=== PATIENT | male | born 1960 | race Caucasian/White ===

== ENCOUNTER 2017-06-11 16:38 | Inpatient (IN) ==
[2017-06-11] MEDS ORDERED: SALINE FLUSH 10ml SYRINGE IVF PRN (16:48)
[2017-06-11] MEDS ORDERED: NITROGLYCERIN 0.4 MG SUBLINGUAL TABLET SL PRN (16:48)
[2017-06-11] MEDS ORDERED: NS 1,000 ML IV ONE ×2 (16:48→18:50)
[2017-06-11] MEDS ORDERED: ASPIRIN 81 MG CHEWABLE TABLET PO ONE (16:48)
--- OUTSIDE RECORDS SUMMARY | 2017-06-11 16:53 | External Medical Summary | Continuity of Care Document ---
:1960 Author Organization [facility] Care Team Providers Name Role Phone [employer] Unavailable Unavailable
--- NOTE | 2017-06-11 17:05 | Emergency Department Report ---
Chest Pain HPI - General Chief Complaint: Chest Pain <Evelyn Hou Ellen 06/11/17 17:05> Stated Complaint: CHEST PAIN LEFT SIDEDED PAIN <SaviEvelynlakshmi Hughes 06/11/17 17:05> Time Seen by Provider: 06/11/17 16:47 <Evelyn Hou 06/11/17 17:05> Source: patient, family <SaviEvelynlakshmi Hughes 06/11/17 17:05> Mode of arrival: wheelchair <Evelyn Hou 06/11/17 17:05> Limitations: no limitations <SaviEvelynlakshmi Hughes 06/11/17 17:05> - History of Present Illness HPI narrative: PT presents with a complaint of left shoulder pain that radiates down his left arm. PT states he woke with the discomfort. He denies nausea, vomiting, diarrhea , diaphoresis, or SOA. Pain is not positional and does not relieve with rest. <Evelyn Hou 06/11/17 17:05> MD complaint: chest pain <SaviEvelynlakshmi Hughes 06/11/17 17:05> Occurred At: home <SaviEvelynlakshmi Hughes 06/11/17 17:05> Onset (ago): hour(s) <Evelyn Hou 06/11/17 17:05> Duration: constant <SaviEvelynlakshmi Hughes 06/11/17 17:05> Onset: during rest <Evelyn Hou 06/11/17 17:05> Relieving factors: nothing <Evelyn Hou 06/11/17 17:05> Exacerbating factors: nothing <Evelyn Hou 06/11/17 17:05> - Related Data Home Medications Medication Instructions Recorded Confirmed Aspirin [Aspirin EC] 81 mg PO DAILY 06/11/17 06/11/17 Cetirizine HCl [Zyrtec] 10 mg PO DAILY 06/11/17 06/11/17 Fluticasone Nasal [place] [Flonase] 1 spray KIKO DAILY 06/11/17 06/11/17 <Evelyn Hou 06/11/17 17:42> Allergies Allergy/AdvReac Type Severity Reaction Status Date / Time No Known Allergies Allergy Verified 06/11/17 17:05 <Evelyn Hou 06/11/17 17:42> Review of Systems All systems: reviewed and negative except as stated <SaviEvelyn Gamboa Ellen 17:05> Constitutional: Reports: as per HPI <HienechoEvelyn Gamboa Ellen 06/11/17 17:05> Cardiovascular: Reports: as per HPI <SaviEvelyn Bee Hughes 06/11/17 17:05> Respiratory: Reports: as per HPI <HienechoEvelyn Gamboa Ellen 06/11/17 17:05> Gastrointestinal: Reports: as per HPI <TabbymanavEvelyn Gamboa Ellen 06/11/17 17:05> Musculoskeletal: Reports: as per HPI <SaviEvelynlakshmi Hughes 06/11/17 17:05> Neurological: Reports: as per HPI <HienechoEvelyn Hughes 06/11/17 17:05> [facility] Patient Stated Medical History Other Cardiology Yes: PAT <June,Mirza M 06/11/17 17:31> Patient Stated Medical History Other Cardiology Yes: PAT <Evelyn Hou 06/11/17 17:42> Physical Exam - Limitations Limitations: no limitations <HienechoEvelyn Hughes 06/11/17 17:05> - General General appearance: alert, in no apparent distress <HienechoEvelyn Hughes 06/11 17:05> - Normal Exams: Head:: Normocephalic without trauma <SaviEvelynlakshmi Hughes 06/11/17 17:05> Eyes:: Pupils are PERRLA w/ EOMI <HienechoEvelyn Gamboa Ellen 06/11/17 17:05> Chest/Respirations:: Clear all bergeron, with good airflow, and symmetry bilaterally <HienechoEvelynlakshmi Hughes 06/11/17 17:05> Cardiovascular:: Regular rate and rhythm, Pulses 2+ all extremities, capillary refill, <2 seconds all extremities <HienechoEvelyn Bee Ellen 06/11/17 17:05> Abdomen:: Bowel sounds positive, soft, non-tender, non-distended <Savi Evelynlakshmi Hughes 06/11/17 17:05> Musculoskeletal:: No tenderness, or deformity noted, good range of motion, all extremities <Evelyn Hou 06/11/17 17:05> Integumentary:: No rashes <Evelyn Hou 06/11/17 17:05> Neurological:: Patient is alert, and oriented, cranial nerves, motor/sensory/ cerebellar, exams w/o gross deficits, to observation <Evelyn Hou 17:05> Psychiatric:: Patient exhibits, appropriate attention, emotion and affect < Evelyn Hou 06/11/17 17:05> Course Vital Signs Temperature 97.8 F 06/11/17 16:41 Pulse Rate 59 L 06/11/17 16:41 Respiratory Rate 16 06/11/17 16:41 Blood Pressure 122/63 06/11/17 16:41 Pulse Oximetry 99 06/11/17 16:41 Temperature 98.6 F 06/12/17 12:24 Pulse Rate 70 06/12/17 16:15 Respiratory Rate 23 06/12/17 16:00 Blood Pressure 102/67 06/12/17 16:15 Pulse Oximetry 98 06/12/17 16:15 <Evelyn Hou 06/15/17 11:55> Chest Pain - MDM Narrative Medical decision making narrative: EKG, X ray and labs reviewed. Results consistent with probable cardiac infarct. Dr Emmanuel notified of findings. PT given NTG paste, Morphine, and started on a Heparin gtt. Discussed admit and plan with pt and family who voice understanding. PT BP lowered with NTG past. NTG removed and fluids provided. Dr Emmanuel updated on status. PT is pain free at time of admission <Evelyn Hou 06/11/17 18:16> - Differential Diagnosis Likely: pneumothorax, stable angina, unstable angina pectoris, atypical chest pain, costochondritis, chest pain <Evelyn Hou 06/11/17 17:05> - Lab Data Attestation: I reviewed the patient's lab results. <Evelyn Hou 06/11 17:42> Result diagrams: 06/12/17 02:04 06/12/17 02:04 <Evelyn Hou 06/11/17 17:05> Lab Results 06/11/17 06/11/17 Range/Units 17:06 17:06 WBC 10.2 (4.5-11.0) T/MM3 RBC 5.02 (4.50-5.90) M/MM3 Hgb 15.1 (13.5-17.5) GM/DL Hct 44.0 (41-53) % MCV 87.6 (80-100) UM3 MCH 30.1 (26-34) UUG MCHC 34.3 (31-37) GM/DL RDW Std Deviation 40.0 (36.9-50.2) FL Plt Count 263 (130-400) T/MM3 MPV 9.7 (9.4-12.4) UM3 Immature Gran % (Auto) Not performed Neut % (Auto) Not performed Lymph % (Auto) Not performed [place] % (Auto) Not performed Eos % (Auto) Not performed Baso % (Auto) Not performed Neut # (Auto) Not performed Lymph # (Auto) Not performed [place] # (Auto) Not performed Eos # (Auto) Not performed Baso # (Auto) Not performed Abs Immat Gran (auto) Not performed Neutrophils % (Manual) 81.0 H (33-66) % Lymphocytes % (Manual) 14.0 L (23-45) % Monocytes % (Manual) 4.0 (0-9.0) % Eosinophils % (Manual) 1.0 (0-4) % Neutrophils # (Manual) 8.3 H (1.8-7.7) T/MM3 Lymphocytes # (Manual) 1.4 (1-4.8) T/MM3 Monocytes # (Manual) 0.4 (0-0.8) T/MM3 Eosinophils # (Manual) 0.1 (0-0.5) T/MM3 RBC Morph Comment Normal Turbidity < 20 (0-20) Sodium 145 H (134-144) MEQ/L Potassium 3.6 (3.6-5) MEQ/L Chloride 107 (98-107) MEQ/L Carbon Dioxide 28 (22-30) MEQ/L Anion Gap 10 (5-15) meq/L BUN 11.0 (9-20) MG/DL Creatinine 0.9 (0.8-1.5) mg/dL GFR Calculation 86 BUN/Creatinine Ratio 12 (6-26) RATIO Glucose 157 H (75-110) MG/DL Calculated Osmolality 281 H (261-280) MOSM/KG Calcium 9.2 (8.4-10.2) MG/DL Icterus Index < 2 (0-7) Troponin I 1.550 H (0-0.12) ng/ml NT-Pro-B Natriuret Pep 379 H (0-175) pg/mL Specimen Hemolysis < 15 (0-25) <Evelyn Hou 06/15/17 11:55> - Radiology Data Attestation: I reviewed the patient's radiology results. (read per Dr Bashir, Bilateral lower lobe infiltrates) <Evelyn Hou 06/11/17 17:42> - EKG Data EKG #1 EKG attestation: Yes: I reviewed and interpreted this EKG. <Evelyn Hou 06/11/17 17:42> Yes: I reviewed and interpreted this EKG. <June,Mirza 06/11 17:31> EKG shows normal: sinus rhythm, axis, ST-T waves <June,Mirza 06/11/17 17:31 > Rate: normal <June,Mirza 06/11/17 17:31> [place]/QRS: RBBB <eb 06/11/17 17:31> Disposition Clinical Impression: Chest pain in adult <Evelyn Hou 06/15/17 11:55> Disposition: 02 To [facility] <Evelyn Hou 06/15/17 11:55> Condition: Improved <Evelyn Hou 06/15/17 11:55> Prescriptions: Continue Aspirin [Aspirin EC] 81 mg PO DAILY Cetirizine HCl [Zyrtec] 10 mg PO DAILY Fluticasone Nasal [place] [Flonase] 1 spray KIKO DAILY <Evelyn Hou 06/15/17 11:55> - Seen By: midlevel <Evelyn oHu 06/15/17 11:55>
[2017-06-11] MEDS ORDERED: NITROGLYCERIN 2% OINTMENT 1gm PACKET TP ONE (17:45)
[2017-06-11] MEDS ORDERED: HEPARIN 1,000unit/ml INJECTION 10ml IV ONE (17:48)
[2017-06-11] MEDS ORDERED: MORPHINE SULFATE 2mg INJ IVP ONE (17:48)
[2017-06-11] MEDS: ACETAMINOPHEN 500 MG TABLET PO PRN ×2 (18:03→23:12)
[2017-06-11] MEDS: HEPARIN DRIP 20,000 UNIT/500 ML BAG IV SCH (18:11)
[2017-06-11 19:48] VITALS: BMI 25.5
[2017-06-11] MEDS ORDERED: CLOPIDOGREL 75 MG TABLET PO ONE (19:48)
--- NOTE | 2017-06-11 20:17 | Cardiology History & Physical ---
History of Present Illness HPI: Mr. Driscoll is a generally healthy 57-year-old male, patient of Dr. Vickey Roman, whom he has seen only once. Patient denies any prior known history of hypertension or diabetes mellitus. Cholesterol status is unknown. He is never a smoker and usually exercises regularly according to his . His father had a heart attack in his 50s. Has been his previous state of health until this morning around 8 AM while in bed and started experiencing some discomfort in the left wrist that radiated up to the arm all the way to the shoulder and adjacent to the left upper chest described as a mild tightness he took 4 chewable aspirins and the pain improved by noontime. Patient says that initially he thought his left hand pain was due to "arthritis". He denies any worsening or other relieving factors, no relationship to a breathing apposition movement or activity that he has noticed. Had some mild associated nausea at first no dyspnea or diaphoresis. Around 3:30 PM had the recurrence of the pain this time he got worried and came to emergency room via private vehicle, EKG showed subtle STT changes in inferior lateral leads without acute ST elevation or depression, troponin came back elevated 1.5, so I was contacted for admission. As the ED mid level wanted to treat his pain, it was was already dissipated so did not receive any sublingual nitroglycerin and patient did not want to have morphine anyway due to prior history of hallucinations with the drug during recovery from hernia repair surgery. Emergency department Patient had nitroglycerin paste placed and heparin drip started in consultation with myself. Patient subsequently had a drop in the blood pressure in the 80s and complained of headaches and nitroglycerin paste was appropriately discontinued and patient received saline bolus blood pressure now is coming up in the 90s heart rate is right around 60 appears comfortable complained only of 1/10 headache and absolutely no chest of her left arm pain at present time. Patient had a sandwich this morning but otherwise has not hungry, nausea and the morning with a chest pain but no vomiting, he denies orthopnea PND or lower extremity edema or dyspnea. No cough fever chills or phlegm production no change in bowel movements no hematochezia melena or abdominal pain. PT presents with a complaint of left shoulder pain that radiates down his left arm. PT states he woke with the discomfort. He denies nausea, vomiting, diarrhea , diaphoresis, or SOA. Pain is not positional and does not relieve with rest. <SaviEvelyn Gamboa Ellen 06/11/17 17:05> MD complaint: chest pain <Evelyn Hou Ellen 06/11/17 17:05> Occurred At: home <Evelyn Hou 06/11/17 17:05> Onset (ago): hour(s) <Evelyn Hou 06/11/17 17:05> Duration: constant <Evelyn Hou 06/11/17 17:05> Onset: during rest <Evelyn Hou 06/11/17 17:05> Relieving factors: nothing <TabbytennilleechoEvelyn Bee Ellen 06/11/17 17:05> Exacerbating factors: nothing <Evelyn Hou 06/11/17 17:05> - Related Data Home Medications Medication Instructions Recorded Confirmed Aspirin [Aspirin EC] 81 mg PO DAILY 06/11/17 06/11/17 Cetirizine HCl [Zyrtec] 10 mg PO DAILY 06/11/17 06/11/17 Fluticasone Nasal [place] [Flonase] 1 spray KIKO DAILY 06/11/17 06/11/17 Review of Systems All systems PM: 10-point ROS was reviewed, no additional remarkable complaints except PFSH Patient Stated Medical History Angina Yes: current Other Cardiology Yes: PAT Osteoarthritis Yes: arthritis in hands Surgical History: Appendectomy and inguinal hernia repair Family History: Father had an CT in his 50s - Social History Smoking status: Never smoker Alcohol intake frequency: a few times a week (0-2 beers) Household members: spouse Current occupational status: employed Current residence: Apartment/Private Home Medications Home Medications Medication Instructions Recorded Confirmed Type Aspirin [Aspirin EC] 81 mg PO DAILY 06/11/17 06/11/17 History Cetirizine HCl [Zyrtec] 10 mg PO DAILY 06/11/17 06/11/17 History Fluticasone Nasal [place] [Flonase] 1 spray KIKO DAILY 06/11/17 06/11/17 History Allergies Allergy/AdvReac Type Severity Reaction Status Date / Time No Known Allergies Allergy Verified 06/11/17 17:05 Exam Vital signs: Temperature 98.2 F 06/11/17 19:51 Pulse Rate 62 06/11/17 19:51 Respiratory Rate 20 06/11/17 19:51 Blood Pressure 95/63 06/11/17 19:51 Pulse Oximetry 98 06/11/17 19:51 - Constitutional no acute distress - Routine HEENT Exam Head: Present: normocephalic, atraumatic Eye: Present: EOMI, PERRL ENT: Present: mucous membranes moist Nose: moist mucous membranes - Routine Neck Exam Present: supple, normal carotid upstroke. Absent: JVD, carotid bruit, lymphadenopathy, thyromegaly - Routine Chest/Breast/Axilla Exam Chest wall: Absent: tenderness - Routine Respiratory Exam Present: CTA bilaterally - Routine Cardiovascular Exam Present: RRR, S1 (normal), S2 (normal), no murmur, S4. Absent: S3, bradycardia , tachycardia, JVD - Detailed Cardiovascular Exam Palpation: Absent: displaced PMI, heave, thrill Auscultation: Absent: pericardial rub - Routine Abdominal Exam Present: soft, normoactive bowel sounds, non distended, non tender. Absent: organomegaly - Routine Extremities Exam Present: no edema, non tender, pulses intact, normal capillary refill. Absent: cyanosis, clubbing - Routine Skin Exam Present: intact, dry, warm. Absent: cyanosis, erythema, pallor - Routine Neurological Exam Present: alert, oriented X3, CN II-XII intact, moving all extremities, vision grossly intact, hearing grossly intact, normal speech. Absent: sensory deficit , motor deficit, hemineglect, facial asymmetry - Routine Psychiatric Exam Present: normal affect, normal thought process, cooperative, good insight, good judgment. Absent: depressed, anxious Results 06/12/17 02:04 06/12/17 02:04 Intake and Output 06/11/17 06/11/17 06/11/17 06:59 14:59 22:59 Other: Weight 87.9 kg Patient Weight 06/12/17 06:59 Weight 87.9 kg Troponin 1.55 BNP 379 Chest x-ray normal per my interpretation - Imaging and Cardiology EKG results: report reviewed, image reviewed - EKG Interpretation EKG: sinus rhythm (SL ST-T abnormality in 3 aVL and small inferior Q waves no diagnostic ST depression or diagnostic ST elevation) Hospital Course This is a general summary of the patient's hospital course. For more details refer to the complete medical record. Time spent with patient: greater than 35 minutes Resuscitation Status: Full Code Assessment and Plan - Assessment and Plan Acute uncomplicated non-ST elevation CT, currently angina free hemodynamically and electrically stable and no clinical evidence of CHF despite abnormal BNP. Blood pressure improved after discontinuing nitroglycerin paste but blood pressure and pulse rate remain borderline to initiate beta blockers, risk outweighs the benefit at this time Admit inpatient status , expect length of stay greater than 2 midnights, requested CCU. IV heparin aspirin and loaded with by mouth Plavix start statin therapy Hold off beta blockers due to risk of hypotension and bradycardia, risk outweighs the benefit at this time, may start in the morning Follow serial troponins EKGs echocardiogram in the morning Check Hemoglobin A1c regarding a random hyperglycemia CCU routine orders Full code Heart catheterization possible. PTCA and stent, Dr. Domitila Emmanuel and colleague/ associate, for the morning . C precath orders including IV fluids to start in the morning Indication alternatives risks benefits were discussed patient's and family, and they are agreement to proceed Subsequently I was contacted the nurse, indicating the patient's requests a different learning center coordinator, with whom she has acquaintance with, will transfer care to Dr. Anderson who accepted the patient. Patient was in agreement.
[2017-06-11] MEDS ORDERED: ATORVASTATIN 40 MG TABLET PO SCH (21:00)
[2017-06-11] MEDS ORDERED: MORPHINE SULFATE 2mg INJ IVP PRN (22:21)
[2017-06-11] MEDS ORDERED: HEPARIN - PHARMACY CONSULT MC ONE (22:37)
--- NOTE | 2017-06-11 22:44 | XRay Report ---
Indication: CP PROCEDURE: XR chest 1V: Encounter: Initial Comparison: None Findings: Faint increased opacity in the left lower lobe. Remaining lung bergeron are clear. No pneumothorax or effusion. Heart size and mediastinal contours are stable. Pulmonary vascularity is normal. Impression: Left lower lobe airspace disease could represent atelectasis or pneumonia. .
--- NOTE | 2017-06-12 08:00 | Pharmacy Consult ---
Pharmacy Consult-Heparin - Laboratory Information Heparin Plt Count 237 T/MM3 (130-400) 06/12/17 02:04 APTT 51.7 SEC (24-36) H 06/12/17 07:17 - Consult Information HEPARIN CONSULT (Recurring): PTT = 51.7 Sec. Platelet count = 237 T/mm3. Will adjust Heparin Drip to 1,080 units/hr (27 ml/hr). Will recheck PTT and adjust regimen as needed. Thank you.
[2017-06-12] MEDS: NS 1,000 ML IV SCH ×2 (08:15→15:40)
[2017-06-12] MEDS ORDERED: CLOPIDOGREL 75 MG TABLET PO SCH (09:00)
[2017-06-12] MEDS ORDERED: ASPIRIN 325 MG TABLET PO SCH (09:00)
--- NOTE | 2017-06-12 11:49 | Cardiology History & Physical ---
History of Present Illness Chief complaint: chest pain HPI: Abdirashid is a generally healthy 57-year-old male, new patient of Dr. Vickey Roman, who denies any prior known history of hypertension or diabetes mellitus. Cholesterol status is unknown. He is never a smoker and usually exercises regularly according to his . His father had a heart attack in his 50s. He has been his previous state of health until this morning around 8 AM while in bed and started experiencing some discomfort in the left wrist that radiated up to the arm all the way to the shoulder and adjacent to the left upper chest described as a mild tightness he took 4 chewable aspirins and the pain improved by noontime. He had some mild nausea at first, no dyspnea or diaphoresis. He felt the aspirin didn't help. Around 3:30 PM had the recurrence of the pain this time he got worried and came to ED. EKG showed subtle changes inferior lateral leads without acute ST elevation or depression, Troponin came back elevated 1.5. Dr. Domitila Emmanuel was contacted for admission and he initiated nitroglycerin paste and heparin drip, although BP dropped and Nitro was removed. At some point following admission the patient decided he would like Dr. Fairbanks to see him this hospitalization. He denies recent illness, fever, chills, cough, sore throat, dyspnea, palpitations, abdominal pain, loose stools, vomiting, or dysuria. Review of Systems - Constitutional Constitutional: Absent: chills, fever(s) - EENMT Eyes: Absent: change in vision Balance: Absent: vertigo Mouth/Throat: Absent: sore throat - Cardiovascular Cardiovascular: Present: chest pain. Absent: palpitations, syncope, dyspnea on exertion, orthopnea Rhythm: Absent: abnormal rhythm Vascular: Absent: pedal edema - Respiratory Respiratory: Absent: cough, dyspnea, dyspnea on exertion - Gastrointestinal Gastrointestinal: Absent: abdominal pain, diarrhea, vomiting - Genitourinary Genitourinary: Absent: dysuria - Integumentary/Breasts Integumentary: Absent: rash - Neurological Neurological: Absent: dizziness - Endocrine Endocrine: Absent: palpitations PFS Patient Stated Medical History Angina Yes: current Other Cardiology Yes: PAT Osteoarthritis Yes: arthritis in hands Surgical History: Appendectomy and inguinal hernia repair Family History: Father - [place] in his 50s - Social History Smoking status: Never smoker Substance use type: does not use Alcohol intake frequency: a few times a week (0-2 beers) Household members: spouse Current occupational status: employed Current residence: Apartment/Private Home Medications Home Medications Medication Instructions Recorded Confirmed Type Aspirin [Aspirin EC] 81 mg PO DAILY 06/11/17 06/11/17 History Cetirizine HCl [Zyrtec] 10 mg PO DAILY 06/11/17 06/11/17 History Fluticasone Nasal [place] [Flonase] 1 spray KIKO DAILY 06/11/17 06/11/17 History Allergies Allergy/AdvReac Type Severity Reaction Status Date / Time No Known Allergies Allergy Verified 06/11/17 17:05 Exam Vital signs: Temperature 97.8 F 06/12/17 03:42 Pulse Rate 70 06/12/17 08:00 Respiratory Rate 16 06/12/17 07:00 Blood Pressure 101/64 06/12/17 07:00 Pulse Oximetry 94 06/12/17 07:00 - Constitutional no acute distress, well nourished, cooperative - Routine HEENT Exam Head: Present: normocephalic ENT: Present: mucous membranes moist - Routine Neck Exam Absent: JVD, carotid bruit - Routine Chest/Breast/Axilla Exam Chest wall: Absent: tenderness - Routine Respiratory Exam Present: CTA bilaterally. Absent: rales, wheezes - Routine Cardiovascular Exam Present: RRR, no murmur - Routine Abdominal Exam Present: soft, non tender - Routine Extremities Exam Present: no edema - Routine Skin Exam Present: intact, dry, warm - Routine Neurological Exam Present: alert, oriented X3 - Routine Psychiatric Exam Present: normal affect, normal thought process Results 06/12/17 02:04 06/12/17 02:04 Cardiac Enzymes 06/11/17 06/12/17 06/12/17 Range/Units 20:17 02:04 07:17 Troponin I 4.750 H D 7.530 H D 14.400 H D (0-0.12) ng/ml Coagulation 06/11/17 06/12/17 Range/Units 23:01 07:17 APTT 60.2 H 51.7 H (24-36) SEC Lipids 06/12/17 Range/Units 02:04 Triglycerides 116 (40-160) mg/dL Cholesterol 174 (132-199) mg/dL HDL Cholesterol 42 (40-60) mg/dL Cholesterol/HDL Ratio 4.1 (0-5.0) RATIO CBC 06/12/17 Range/Units 02:04 WBC 9.1 (4.5-11.0) T/MM3 RBC 4.45 L (4.50-5.90) M/MM3 Hgb 13.7 (13.5-17.5) GM/DL Hct 39.3 L (41-53) % Plt Count 237 (130-400) T/MM3 Neut # (Auto) 6.2 (1.8-7.7) T/MM3 Lymph # (Auto) 2.1 (1-4.8) T/MM3 [place] # (Auto) 0.7 (0-0.8) T/MM3 Eos # (Auto) 0.1 (0-0.5) T/MM3 Baso # (Auto) 0.0 (0-0.2) T/MM3 Comprehensive Metabolic Panel 06/12/17 Range/Units 02:04 Sodium 145 H (134-144) MEQ/L Potassium 3.6 (3.6-5) MEQ/L Chloride 113 H (98-107) MEQ/L Carbon Dioxide 21 L (22-30) MEQ/L BUN 7.0 L (9-20) MG/DL Creatinine 0.7 L D (0.8-1.5) mg/dL Glucose 92 (75-110) MG/DL Calcium 8.3 L D (8.4-10.2) MG/DL Intake and Output 06/11/17 06/12/17 06/12/17 22:59 06:59 14:59 Intake Total 999 351.667 / 351.667 Output Total Balance 999 - 351.667 / 351.667 Intake: IV 1000 / 1000 351.667 / 351.667 Heparin Drip 20,000 unit In 500 351.667 / 351.667 ml @ 1,080 UNIT/HR 27 mls/hr IV .[id number] HEATH Rx#:[id number] Ns 1,000 ml @ 999.9 mls/hr IV . 1000 / 1000 Q1H ONE Rx#:[id number] Output: Urine Other: # Voids 1 Weight 193 lb 12.581 oz 191 lb 12.835 oz Patient Weight 06/13/17 06:59 Weight 191 lb 12.835 oz - Imaging and Cardiology Echo: pending Imaging & Cardiology Narrative: Date of Exam: 06/11/17 Ordering Provider: Mirza Bashir DO Type of Exam(s): XR chest 1V Reason for Exam(s): CP Indication: CP PROCEDURE: XR chest 1V: Encounter: Initial Comparison: None Findings: Faint increased opacity in the left lower lobe. Remaining lung bergeron are clear. No pneumothorax or effusion. Heart size and mediastinal contours are stable. Pulmonary vascularity is normal. Impression: Left lower lobe airspace disease could represent atelectasis or pneumonia. 06/12/17 13:15 EKG interpretations - EKG EKG results cardiology: sinus rhythm - Blocks, axis, hypertrophy, ST abn AV and intraventricular conduction: right bundle branch block (fixed/ intermittent, complete/incomplete) Repolarization changes or abnormalities: nonspecific abnormality, ST segment, and/or T wave Hospital Course This is a general summary of the patient's hospital course. For more details refer to the complete medical record. Time spent with patient: 25 - 35 minutes Resuscitation Status: Full Code Assessment and Plan - Attestation Attestation Narrative: 06/14/17 08:16 Recommendation After examining the patient I agree with the above assessment. I am involved in the formulation of the patient's plan of care. - Assessment and Plan (1) NSTEMI (non-ST elevated myocardial infarction) Status: Acute No Active chest pain - EKG SR, non specific STT changes - Trend serial troponin until trends down: 1) 1.550, 2) 4.750, 3) 7.530, 4) 14.400 - Repeat EKG - 2D echo - Heparin per pharmacy consult - NS at 75ml/hr - Consent for left HC with possible PCI
[2017-06-12 12:25] VITALS: TEMP 98.6
[2017-06-12] MEDS: HEPARIN DRIP 20,000 UNIT/500 ML BAG IV SCH (13:46)
--- NOTE | 2017-06-12 14:00 | Pharmacy Consult ---
Pharmacy Consult-Heparin - Laboratory Information Heparin Plt Count 237 T/MM3 (130-400) 06/12/17 02:04 APTT 54.3 SEC (24-36) H 06/12/17 13:16 - Consult Information HEPARIN CONSULT (Recurring): PTT = 54.3 Sec. Will continue Heparin Drip at 1080 units/hr (27 ml/hr). Will recheck PTT and adjust regimen as needed. Thank you.
[2017-06-12] MEDS ORDERED: LIDOCAINE 1% (10mg/ml) 30ml SDV INJ ONE (14:03)
[2017-06-12] MEDS ORDERED: HEPARIN 1,000 UNITS/500 ML PREMIX (*CVL ONLY*) IV ONE (14:03)
[2017-06-12] MEDS ORDERED: NS 1,000 ML ONE (14:53)
[2017-06-12] MEDS ORDERED: Verapamil 5 MG/2 ML VIAL ONE (14:54)
[2017-06-12] MEDS ORDERED: NITROGLYCERIN 50MG INJECTION IV ONE (14:54)
[2017-06-12] MEDS ORDERED: MIDAZOLAM 2mg/2ml INJECTION ONE (14:54)
[2017-06-12] MEDS ORDERED: FentaNYL 250 MCG/5 ML INJECTION ONE (14:54)
[2017-06-12] MEDS ORDERED: HEPARIN 1,000unit/ml INJECTION 10ml ONE (14:55)
[2017-06-12] MEDS ORDERED: Bisacodyl EC TAB 5 MG TABLET PO PRN (15:52)
[2017-06-12] MEDS ORDERED: METOCLOPRAMIDE 10mg/2ml INJECTION IVP PRN (15:52)
[2017-06-12] MEDS ORDERED: PROMETHAZINE 25 MG INJECTION IVP PRN (15:52)
[2017-06-12] MEDS ORDERED: HYDROCODONE/APAP 5mg/325mg TABLET PO PRN (15:52)
[2017-06-12] MEDS ORDERED: ACETAMINOPHEN 325 MG TABLET PO PRN (15:52)
[2017-06-12] MEDS ORDERED: MAG-AL + SIM ORAL LIQUID 30ml PO PRN (15:52)
[2017-06-12] MEDS ORDERED: MORPHINE SULFATE 4mg INJECTION IVP PRN ×2 (15:52)
[2017-06-12] MEDS ORDERED: LORazepam 0.5 MG TABLET PO PRN (15:52)
[2017-06-12] MEDS ORDERED: ATROPINE 1 MG/ML INJECTION IVP PRN (15:52)
[2017-06-12] MEDS ORDERED: ONDANSETRON 4 MG/2 ML INJECTION IVP PRN (15:52)
[2017-06-12] MEDS ORDERED: NITROGLYCERIN 0.4 MG SUBLINGUAL TABLET SL PRN (15:52)
[2017-06-12] MEDS ORDERED: BISACODYL 10 MG SUPPOSITORY RECTALLY PRN (15:52)
[2017-06-12 16:31] VITALS: BP 102/67; PULSE 70; RESP 23; O2SAT 98
[2017-06-12] MEDS: ACETAMINOPHEN 500 MG TABLET PO PRN (16:36)
--- NOTE | 2017-06-12 17:38 | Discharge Summary ---
<Lalitha Ron - Last Filed: 06/13/17 09:40> Discharge Information Date of admission: 06/11/17 19:11 Anticipated date of discharge: 06/12/17 Attending Physician: Osman Fairbanks MD Primary care physician: Vickey Roman DO Consults: 06/11/17 21:42 Physician Consult [CONS] Routine Consulting Provider: Osman Fairbanks Reason For Exam: transfer care Ordering Provider has Notified Certified Dietary Manager: No Comment: Pt wants care to be transferred to Dr. Fairbanks 06/12/17 15:52 Outpt Cardiac Rehab Consult [CONS] Routine - Discharge Diagnosis (1) NSTEMI (non-ST elevated myocardial infarction) Status: Acute Severe multivessel CAD, NSTEMI - Procedures Procedures: Date of Exam: 06/12/17 Type of Exam(s): CA heart cath LT DATE OF PROCEDURE 06/12/2017 The patient is a 57-year-old gentleman who was admitted with [id number] myocardial infarction and was referred for further evaluation by cardiac catheterization and possible intervention. Informed consent was obtained after explaining the procedure and the potential risks to the patient who agreed to proceed with the procedure. PROCEDURE 1. Left heart catheterization. 2. Coronary angiography. 3. Left ventriculography. TECHNIQUE He was prepped and draped in the usual sterile techniques. Conscious sedation was performed using Versed and fentanyl. 1% lidocaine was used for local anesthesia. Using modified Seldinger technique, arterial access was obtained into the right radial artery with placement of a 6-Malay arterial sheath. 3000 units of heparin, 300 mcg of nitroglycerin, and 2.5 mg of verapamil were given through the arterial sheath. LEFT VENTRICULOGRAPHY Left ventriculography in single-plane POWELL shallow projection showed normal LV systolic function with ejection fraction of about 60% with no mitral regurgitation or gradient across the aortic valve. LVEDP was about 8. CORONARY ANGIOGRAPHY Left main was free of significant lesions. Left anterior descending artery was a cazflp-ci-vycpx-caliber vessel which was occluded after the first diagonal. Distal LAD was filling late via ubgz-pu-bwwv collaterals. Left circumflex artery was a nondominant vessel and a cximqo-lo-vrcwn-caliber vessel with large marginal which showed about 70%-80% stenosis. Right coronary artery had mid 90 % stenosis. It was dominant. The patient tolerated the procedure well with no complications. IMPRESSION 1. Multivessel severe coronary artery disease as described above. 2. Normal LV systolic function with ejection fraction of about 60%. PLAN Will transfer and consult surgery for possible surgical revascularization of his coronary artery disease. - Laboratory Labs: 06/12/17 02:04 06/12/17 02:04 History of Present Illness HPI: Abdirashid is a generally healthy 57-year-old male, new patient of Dr. Vickey Roman, who denies any prior known history of hypertension or diabetes mellitus. Cholesterol status is unknown. He is never a smoker and usually exercises regularly according to his . His father had a heart attack in his 50s. He has been his previous state of health until this morning around 8 AM while in bed and started experiencing some discomfort in the left wrist that radiated up to the arm all the way to the shoulder and adjacent to the left upper chest described as a mild tightness he took 4 chewable aspirins and the pain improved by noontime. He had some mild nausea at first, no dyspnea or diaphoresis. He felt the aspirin didn't help. Around 3:30 PM had the recurrence of the pain this time he got worried and came to ED. EKG showed subtle changes inferior lateral leads without acute ST elevation or depression, Troponin came back elevated 1.5. Dr. Domitila Emmanuel was contacted for admission and he initiated nitroglycerin paste and heparin drip, although BP dropped and Nitro was removed. At some point following admission the patient decided he would like Dr. Fairbanks to see him this hospitalization. He denies recent illness, fever, chills, cough, sore throat, dyspnea, palpitations, abdominal pain, loose stools, vomiting, or dysuria. Hospital Course This is a general summary of the patient's hospital course. For more details refer to the complete medical record. Time spent with patient: 25 - 35 minutes Resuscitation Status: Full Code Exam Vital signs: Temperature 98.6 F 06/12/17 12:24 Pulse Rate 70 06/12/17 16:15 Respiratory Rate 23 06/12/17 16:00 Blood Pressure 102/67 06/12/17 16:15 Pulse Oximetry 98 06/12/17 16:15 - Constitutional no acute distress, well nourished, cooperative - Routine HEENT Exam Head: Present: normocephalic ENT: Present: mucous membranes moist - Routine Neck Exam Absent: JVD, carotid bruit - Routine Chest/Breast/Axilla Exam Chest wall: Absent: tenderness - Routine Respiratory Exam Present: CTA bilaterally. Absent: dyspnea, rales, wheezes, diminished air movement - Routine Cardiovascular Exam Present: RRR, bradycardia - Routine Abdominal Exam Present: soft, non tender - Routine Extremities Exam Present: no edema - Routine Skin Exam Present: intact, dry, warm - Routine Neurological Exam Present: alert, oriented X3 - Routine Psychiatric Exam Present: normal affect, normal thought process Results 06/12/17 02:04 06/12/17 02:04 Cardiac Enzymes 06/11/17 06/12/17 06/12/17 Range/Units 20:17 02:04 07:17 Troponin I 4.750 H D 7.530 H D 14.400 H D (0-0.12) ng/ml 06/12/17 Range/Units 13:16 Troponin I 12.800 H (0-0.12) ng/ml Coagulation 06/11/17 06/12/17 06/12/17 Range/Units 23:01 07:17 13:16 APTT 60.2 H 51.7 H 54.3 H (24-36) SEC Lipids 06/12/17 Range/Units 02:04 Triglycerides 116 (40-160) mg/dL Cholesterol 174 (132-199) mg/dL HDL Cholesterol 42 (40-60) mg/dL Cholesterol/HDL Ratio 4.1 (0-5.0) RATIO CBC 06/12/17 Range/Units 02:04 WBC 9.1 (4.5-11.0) T/MM3 RBC 4.45 L (4.50-5.90) M/MM3 Hgb 13.7 (13.5-17.5) GM/DL Hct 39.3 L (41-53) % Plt Count 237 (130-400) T/MM3 Neut # (Auto) 6.2 (1.8-7.7) T/MM3 Lymph # (Auto) 2.1 (1-4.8) T/MM3 [place] # (Auto) 0.7 (0-0.8) T/MM3 Eos # (Auto) 0.1 (0-0.5) T/MM3 Baso # (Auto) 0.0 (0-0.2) T/MM3 Comprehensive Metabolic Panel 06/12/17 Range/Units 02:04 Sodium 145 H (134-144) MEQ/L Potassium 3.6 (3.6-5) MEQ/L Chloride 113 H (98-107) MEQ/L Carbon Dioxide 21 L (22-30) MEQ/L BUN 7.0 L (9-20) MG/DL Creatinine 0.7 L D (0.8-1.5) mg/dL Glucose 92 (75-110) MG/DL Calcium 8.3 L D (8.4-10.2) MG/DL Intake and Output 06/12/17 06/12/17 06/12/17 06:59 14:59 22:59 Intake Total 500.000 / 500.000 51.3 / 51.3 Output Total Balance -1 / -1 500.000 / 500.000 51.3 / 51.3 Intake: IV 500.000 / 500.000 51.3 / 51.3 Heparin Drip 20,000 unit In 500 500.000 / 500.000 51.3 / 51.3 ml @ 1,080 UNIT/HR 27 mls/hr IV .[id number] COUNTS INCLUDE 234 BEDS AT THE [facility] Rx#:[id number] Output: Urine Other: # Voids 1 Weight 191 lb 12.835 oz Patient Weight 06/13/17 06:59 Weight 191 lb 12.835 oz - Imaging and Cardiology Imaging & Cardiology Narrative: Date of Exam: 06/11/17 Ordering Provider: Mirza Bashir DO Type of Exam(s): XR chest 1V Reason for Exam(s): CP Indication: CP PROCEDURE: XR chest 1V: Encounter: Initial Comparison: None Findings: Faint increased opacity in the left lower lobe. Remaining lung bergeron are clear. No pneumothorax or effusion. Heart size and mediastinal contours are stable. Pulmonary vascularity is normal. Impression: Left lower lobe airspace disease could represent atelectasis or pneumonia. 06/12/17 17:37 06/13/17 09:41 Date of Exam: 06/12/17 Type of Exam(s): US echo doppler complete DATE OF PROCEDURE 06/12/2017 This is a two-dimensional echo with spectral Doppler, color-flow and M-mode. It was obtained in a patient with NSTEMI. Left atrial dimension is normal. Left ventricular end-diastolic dimension is normal. Left ventricular wall thickness is normal. LV systolic function is normal with ejection fraction of about 55%. Right atrium is normal. Right ventricle is normal. Aortic root dimension is normal. Mitral valve is morphologically normal with mild mitral regurgitation. Aortic valve appears to be normal. Tricuspid valve shows trace of tricuspid regurgitation with normal estimated pulmonary artery systolic pressure of 23. Pulmonary valve shows trace of pulmonary insufficiency. There is no pericardial effusion. IMPRESSION 1. Normal LV systolic function with ejection fraction of about 55%. 2. Mild mitral regurgitation. 3. Trace of tricuspid regurgitation with normal estimated pulmonary artery systolic pressure of 23. 4. Trace of pulmonary insufficiency. - EKG Interpretation EKG: sinus rhythm Discharge Plan - Med Rec/Dispo Referrals/Follow Up: Osman Fairbanks MD [Physician] - 3 Weeks Truvrodrigo Instructions: Heart Catheterization (DC) Prescriptions: Continue Aspirin [Aspirin EC] 81 mg PO DAILY Cetirizine HCl [Zyrtec] 10 mg PO DAILY Fluticasone Nasal [place] [Flonase] 1 spray KIKO DAILY - Disposition 02 To [facility] Acute Care - Dismissal Complete Discharge Instructions are:: Complete <Osman Fairbanks - Last Filed: 06/14/17 08:13> Discharge Information Date of admission: 06/11/17 19:11 Attending Physician: Osman Fairbanks MD Primary care physician: Vickey Roman DO Consults: 06/11/17 21:42 Physician Consult [CONS] Routine Consulting Provider: Osman Fairbanks Reason For Exam: transfer care Ordering Provider has Notified Certified Dietary Manager: No Comment: Pt wants care to be transferred to Dr. Fairbanks 06/12/17 15:52 Outpt Cardiac Rehab Consult [CONS] Routine - Discharge Diagnosis (1) NSTEMI (non-ST elevated myocardial infarction) Status: Acute - Laboratory Labs: 06/12/17 02:04 06/12/17 02:04 Hospital Course This is a general summary of the patient's hospital course. For more details refer to the complete medical record. Exam Vital signs: Temperature 98.6 F 06/12/17 12:24 Pulse Rate 70 06/12/17 16:15 Respiratory Rate 23 06/12/17 16:00 Blood Pressure 102/67 06/12/17 16:15 Pulse Oximetry 98 06/12/17 16:15 Results 06/12/17 02:04 06/12/17 02:04 Attestation Narriative - Attestation Attestation Narrative: 06/14/17 08:13 Recommendation After examining the patient I agree with the above assessment. I am involved in the formulation of the patient's plan of care.
--- NOTE | 2017-06-12 20:39 | Cardiac Catheterization Report ---
DATE OF PROCEDURE 06/12/2017 The patient is a 57-year-old gentleman who was admitted with [id number] myocardial infarction and was referred for further evaluation by cardiac catheterization and possible intervention. Informed consent was obtained after explaining the procedure and the potential risks to the patient who agreed to proceed with the procedure. PROCEDURE 1. Left heart catheterization. 2. Coronary angiography. 3. Left ventriculography. TECHNIQUE He was prepped and draped in the usual sterile techniques. Conscious sedation was performed using Versed and fentanyl. 1% lidocaine was used for local anesthesia. Using modified Seldinger technique, arterial access was obtained into the right radial artery with placement of a 6-[place] arterial sheath. 3000 units of heparin, 300 mcg of nitroglycerin, and 2.5 mg of verapamil were given through the arterial sheath. LEFT VENTRICULOGRAPHY Left ventriculography in single-plane POWELL shallow projection showed normal LV systolic function with ejection fraction of about 60% with no mitral regurgitation or gradient across the aortic valve. LVEDP was about 8. CORONARY ANGIOGRAPHY Left main was free of significant lesions. Left anterior descending artery was a kndkjo-sd-bllvb-caliber vessel which was occluded after the first diagonal. Distal LAD was filling late via hxln-sk-xwcn collaterals. Left circumflex artery was a nondominant vessel and a igbxeh-rr-iunbx-caliber vessel with large marginal which showed about 70%-80% stenosis. Right coronary artery had mid 90 % stenosis. It was dominant. The patient tolerated the procedure well with no complications. IMPRESSION 1. Multivessel severe coronary artery disease as described above. 2. Normal LV systolic function with ejection fraction of about 60%. PLAN Will transfer and consult surgery for possible surgical revascularization of his coronary artery disease. LALITA
--- NOTE | 2017-06-12 20:42 | Echocardiogram ---
DATE OF PROCEDURE 06/12/2017 This is a two-dimensional echo with spectral Doppler, color-flow and M-mode. It was obtained in a patient with NSTEMI. Left atrial dimension is normal. Left ventricular end-diastolic dimension is normal. Left ventricular wall thickness is normal. LV systolic function is normal with ejection fraction of about 55%. Right atrium is normal. Right ventricle is normal. Aortic root dimension is normal. Mitral valve is morphologically normal with mild mitral regurgitation. Aortic valve appears to be normal. Tricuspid valve shows trace of tricuspid regurgitation with normal estimated pulmonary artery systolic pressure of 23. Pulmonary valve shows trace of pulmonary insufficiency. There is no pericardial effusion. IMPRESSION 1. Normal LV systolic function with ejection fraction of about 55%. 2. Mild mitral regurgitation. 3. Trace of tricuspid regurgitation with normal estimated pulmonary artery systolic pressure of 23. 4. Trace of pulmonary insufficiency. MTDD
[2017-06-13] MEDS ORDERED: CETIRIZINE 10 MG TABLET PO SCH (09:00)
[2017-06-13] MEDS ORDERED: ASPIRIN *EC* 81 MG TABLET PO SCH (09:00)
[2017-06-13] MEDS ORDERED: FLUTICASONE NASAL SPRAY 50mcg EA NOSTRIL SCH (09:00)
== END 2017-06-12 17:30 | disposition short-term general hospital (02) | DRG 282 ==
LOC: ED 16:38 → SRG 19:11 → CCU 06-12 15:47
PROVIDERS: ADMIT Internal Medicine Cardiovascular Disease; ATTEND Internal Medicine Cardiovascular Disease